=== PATIENT | male | born 1985 | race African-American/Black ===

== ENCOUNTER 2017-03-28 06:49 | Emergency (ER) | payer MEDICARE ==
[~2017-03-28] VITALS: Ht 175.3 cm; Wt 63.5 kg
[~2017-03-28 06:49] MED LIST: CLIN150C14 PO; HYDR-971 PO; MUPI15CR TP; SULF1TAB24 PO; TRAM50TA PO
--- NOTE | 2017-03-28 07:02 | PHYS DOC ---
Past Medical History Past Medical History: Asthma, Bipolar Additional Past Medical Histor: ADHD Past Surgical History: No Surgical History Smokin Pack Per Day Alcohol Use: Heavy Drug Use: Cocaine, Marijuana Adult General Chief Complaint Chief Complaint: MULTIPLE COMPLAINTS HPI HPI Patient is a 32 year old male presents to the emergency department with left anterior chest wall pain. Patient states his pain developed yesterday while he was drinking alcohol. He states he has no known injury. Patient states the pain persisted a level IX on a scale 1-10. Patient has no associated symptoms, no headache, lightheadedness, dizziness, no nausea, no vomiting, no abdominal pain. He states he has not been diaphoretic. Patient does report a history of bipolar disorder and states he is taking his medications. He reports he does not use any illicit drugs. Review of Systems Review of Systems Constitutional: Denies fever or chills [] Eyes: Denies change in visual acuity, redness, or eye pain [] HENT: Denies nasal congestion or sore throat [] Respiratory: Denies cough or shortness of breath [] Cardiovascular: Anterior chest wall pain, no palpitations, no edema GI: Denies abdominal pain, nausea, vomiting, bloody stools or diarrhea [] : Denies dysuria or hematuria [] Musculoskeletal: Denies back pain or joint pain [] Integument: Denies rash or skin lesions , denies diaphoresis[] Neurologic: Denies headache, focal weakness or sensory changes [] Endocrine: Denies polyuria or polydipsia [] All other systems were reviewed and found to be within normal limits, except as documented in this note. Current Medications Current Medications Current Medications Medications (Trade) Dose Ordered Sig/[facility] Start Time Stop Time Status Last Admin Dose Admin Naproxen (Naprosyn) 500 mg 1X ONCE 03/28/17 07:30 03/28/17 07:31 DC Allergies Allergies Allergies Coded Allergies Type Severity Reaction Last Updated Verified No Known Drug Allergies 06/30/13 No Physical Exam Physical Exam Constitutional: Well developed, well nourished, no acute distress, non-toxic appearance. [] HENT: Normocephalic, atraumatic, bilateral external ears normal, oropharynx moist, no oral exudates, nose normal. [] Neck: Normal range of motion, no tenderness, supple without lymphadenopathy, no stridor. [] Cardiovascular:Heart rate regular rhythm, no murmur [] Lungs & Thorax: Bilateral breath sounds clear to auscultation, tenderness to palpate left anterior chest wall intercostal spaces 4 through 7 extending from the left sternal border 2 cm past the midclavicular line.[] Abdomen: Bowel sounds normal, soft, no tenderness, no masses, no pulsatile masses. [] Skin: Warm, dry, no erythema, no rash. [] Back: No tenderness, no CVA tenderness. [] Extremities: No tenderness, no cyanosis, no clubbing, ROM intact, no edema. [] Neurologic: Alert and oriented X 3, normal motor function, normal sensory function, no focal deficits noted. [] Current Patient Data Vital Signs Vital Signs Date Time Temp Pulse Resp B/P (MAP) Pulse Ox O2 Delivery O2 Flow Rate FiO2 03/28/17 06:57 97.9 64 20 129/77 (94) 98 Room Air 97.9 Lab Values Laboratory Tests Test 03/28/17 07:10 White Blood Count 4.6 x10^3/uL (4.0-11.0) Red Blood Count 5.26 x10^6/uL (4.30-5.70) Hemoglobin 12.7 g/dL (13.0-17.5) L Hematocrit 40.8 % (39.0-53.0) Mean Corpuscular Volume 77 fL (79-100) L Mean Corpuscular Hemoglobin 24 pg (25-35) L Mean Corpuscular Hemoglobin Concent 31 g/dL (31-37) Red Cell Distribution Width 13.6 % (11.5-14.5) Platelet Count 148 x10^3/uL (140-400) Neutrophils (%) (Auto) 33 % (31-73) Lymphocytes (%) (Auto) 47 % (24-48) Monocytes (%) (Auto) 12 % (0-9) H Eosinophils (%) (Auto) 7 % (0-3) H Basophils (%) (Auto) 0 % (0-3) Neutrophils # (Auto) 1.5 x10^3uL (1.8-7.7) L Lymphocytes # (Auto) 2.1 x10^3/uL (1.0-4.8) Monocytes # (Auto) 0.6 x10^3/uL (0.0-1.1) Eosinophils # (Auto) 0.3 x10^3/uL (0.0-0.7) Basophils # (Auto) 0.0 x10^3/uL (0.0-0.2) Sodium Level 140 mmol/L (136-145) Potassium Level 3.6 mmol/L (3.5-5.1) Chloride Level 103 mmol/L (98-107) Carbon Dioxide Level 29 mmol/L (21-32) Anion Gap 8 (6-14) Blood Urea Nitrogen 19 mg/dL (8-26) Creatinine 0.9 mg/dL (0.7-1.3) Estimated GFR (Cockcroft-Gault) 119.9 BUN/Creatinine Ratio 21 (6-20) H Glucose Level 97 mg/dL (70-99) Calcium Level 8.7 mg/dL (8.5-10.1) Total Bilirubin 0.7 mg/dL (0.2-1.0) Aspartate Amino Transferase (AST) 15 U/L (15-37) Alanine Aminotransferase (ALT) 17 U/L (16-63) Alkaline Phosphatase 51 U/L (46-116) Creatine Kinase 110 U/L (39-308) Creatine Kinase MB (Mass) < 0.5 ng/mL (0.0-3.6) Creatine Kinase MB Relative Index % (0-4) Troponin I Quantitative < 0.017 ng/mL (0.000-0.055) Total Protein 7.1 g/dL (6.4-8.2) Albumin 3.6 g/dL (3.4-5.0) Albumin/Globulin Ratio 1.0 (1.0-1.7) Laboratory Tests 03/28/17 07:10 Laboratory Tests 03/28/17 07:10 EKG EKG 0702: EKG reviewed by Dr. Treadwell, nonstemi[] Radiology/Procedures Radiology/Procedures [] Course & Med Decision Making Course & Med Decision Making Pertinent Labs and Imaging studies reviewed. (See chart for details) Urine 21, mild dehydration. Patient taking by mouth fluids without difficulty. Will encourage oral rehydration. The patient is resting comfortably and feels better, is alert and in no distress. Repeat examination is unremarkable and benign. He has relief of his left chest wall discomfort with palpation. Elected cardiogram shows no signs of acute ischemia in the history, exam, diagnostic testing and current condition do not suggest that this patient is having acute myocardial infarction, significant arrhythmia, unstable angina, or other significant pathology that would warrant further testing, continued ED treatment, admission or cardiology or other special consultation at this point. Vital signs been stable. The patient's condition is stable and appropriate for discharge. The patient will pursue further outpatient evaluation with the primary care physician or designate and discharge instructions. The patient has expressed a clear and thorough understanding and agrees to follow up as instructed. [] Dragon Disclaimer Dragon Disclaimer This electronic medical record was generated, in whole or in part, using a voice recognition dictation system. Departure Departure Impression: Primary Impression: Chest wall pain Disposition: HOME, SELF-CARE Condition: STABLE Referrals: NO PCP (PCP) [facility] Patient Instructions: Chest Wall Pain Additional Instructions: These call the family medical numerical control operator group for follow-up appointment within 3 -5 days. He may use moist heat to the chest wall. Return to the emergency department new symptoms or concerns or worsening of current condition. Scripts Naproxen (NAPROSYN) 500 Mg Tablet 500 MG PO BID Y for PAIN, #20 TAB Prov: LILLIAN SON APRN 03/28/17 LILLIAN SON APRN Mar 28, 2017 07:02
--- NOTE | 2017-03-28 07:10 | EKG ---
[facility] [address] [place] [address] Test Date: 2017-03-28 Test Time: 07:02:06 Pat Name: JAVIER HAYNES Department: Room: Gender: M Liquor Clerk: : 1985 Requested By: LILLIAN SON Order Number: [id number] Reading MD: Dre Helms MD Measurements Intervals Given Rate: 51 P: 43 AR: 138 QRS: 79 QRSD: 90 T: 64 QT: 388 QTc: 359 Interpretive Statements SINUS RHYTHM Electronically Signed On 04-01-2017 10:39:31 OFFICE SECRETARY by Dre Helms MD
[2017-03-28] MEDS ORDERED: NAPROXEN 500 MG TABLET PO ONE (07:30)
[2017-03-28 07:31] LABS: BASO % 0 % (0-3); EOS % 7 % (0-3); HEMATOCRIT 40.8 % (39.0-53.0); HEMOGLOBIN 12.7 g/dL (13.0-17.5); LYMPH # 2.1 x10^3/uL (1.0-4.8); LYMPH % 47 % (24-48); MEAN CORPUSCULAR HEMOGLOBIN 24 pg (25-35); MEAN CORPUSCULAR HGB CONC 31 g/dL (31-37); MEAN CORPUSCULAR VOLUME 77 fL (79-100); MONO % 12 % (0-9); NEUT % 33 % (31-73); PLATELET COUNT 148 x10^3/uL (140-400); RED BLOOD COUNT 5.26 x10^6/uL (4.30-5.70); RED CELL DISTRIBUTION WIDTH 13.6 % (11.5-14.5); WHITE BLOOD COUNT 4.6 x10^3/uL (4.0-11.0)
[2017-03-28 07:45] LABS: CALCIUM 8.7 mg/dL (8.5-10.1); CREATININE 0.9 mg/dL (0.7-1.3); GFR 119.9; POTASSIUM 3.6 mmol/L (3.5-5.1)
[2017-03-28 07:51] LABS: ALBUMIN 3.6 g/dL (3.4-5.0); TOTAL BILIRUBIN 0.7 mg/dL (0.2-1.0); TOTAL PROTEIN 7.1 g/dL (6.4-8.2)
[2017-03-28 08:00] LABS: CKMB MASS < 0.5 ng/mL (0.0-3.6); CREATINE KINASE 110 U/L (39-308)
[2017-03-28] MEDS ORDERED: NAPR500T PO (08:06)
[2017-03-28 08:30] VITALS: BP 150/75
== END 2017-03-28 08:31 | disposition home or self-care (01) ==
LOC: ER 06:49
DX: R07.89 Other chest pain (principal); F90.9 Attention-deficit hyperactivity disorder, unspecified type; F31.9 Bipolar disorder, unspecified; J45.909 Unspecified asthma, uncomplicated; F10.10 Alcohol abuse, uncomplicated; F17.200 Nicotine dependence, unspecified, uncomplicated
CPT/HCPCS: 36415; 80053; 82553; 84484; 85025; 93005; 99285-25

== ENCOUNTER 2018-02-17 06:26 | Emergency (ER) | payer MEDICARE ==
[~2018-02-17] VITALS: Ht 177.8 cm; Wt 63.5 kg
[~2018-02-17 06:26] MED LIST changes: +BREX4TAB PO; +NAPR-683 PO; +TRAZ-86 PO
[2018-02-17 06:44] LABS: BASO # 0.1 x10^3/uL (0.0-0.2); BASO % 1 % (0-3); EOS # 0.6 x10^3/uL (0.0-0.7); EOS % 7 % (0-3); HEMATOCRIT 44.1 % (39.0-53.0); HEMOGLOBIN 14.3 g/dL (13.0-17.5); LYMPH # 2.2 x10^3/uL (1.0-4.8); LYMPH % 29 % (24-48); MEAN CORPUSCULAR HEMOGLOBIN 25 pg (25-35); MEAN CORPUSCULAR HGB CONC 32 g/dL (31-37); MEAN CORPUSCULAR VOLUME 77 fL (79-100); MONO # 0.9 x10^3/uL (0.0-1.1); MONO % 12 % (0-9); NEUT # 3.9 x10^3uL (1.8-7.7); NEUT % 52 % (31-73); PLATELET COUNT 207 x10^3/uL (140-400); RED BLOOD COUNT 5.72 x10^6/uL (4.30-5.70); RED CELL DISTRIBUTION WIDTH 13.5 % (11.5-14.5); WHITE BLOOD COUNT 7.6 x10^3/uL (4.0-11.0)
--- NOTE | 2018-02-17 06:47 | PHYS DOC ---
Past Medical History Past Medical History: Alcoholism, Schizophrenia Additional Past Medical Histor: ADHD Past Surgical History: No Surgical History Smoking: Cigarettes Alcohol Use: Heavy Drug Use: Marijuana Adult General Chief Complaint Chief Complaint: NAUSEA/VOMITING/DIARRHA HPI HPI 32-year-old male presents with report of headache with associated nausea and vomiting. Patient reports symptoms occurred upon waking this morning. Patient requesting work excuse. Patient also reports drinking heavily this weekend. Reports drinks moonshine and gin which he buys daily. History of chronic alcoholism. Patient also reports smoking marijuana. Denies fever or chills. Reports headache is "all over ". Denies any neck pain. Denies known trauma. Reports he has had a previous episode in the past. [facility] review noted patient admitted in July for alcoholic ketoacidosis. Review of Systems Review of Systems Constitutional: Denies fever or chills; generalized malaise Eyes: Denies change in visual acuity, redness, or eye pain [] HENT: Denies nasal congestion or epistaxis [] Respiratory: Denies cough or shortness of breath [] Cardiovascular: Denies chest pain or palpitations GI: Reports abdominal pain, nausea, and vomiting. Denies constipation : Denies dysuria or hematuria [] Musculoskeletal: Denies back pain or joint pain [] Integument: Denies rash or laceration Neurologic: Reports headache, denies dizziness or lightheadedness Complete systems were reviewed and found to be within normal limits, except as documented in this note. Current Medications Current Medications Current Medications Medications (Trade) Dose Ordered Sig/Dee Start Time Stop Time Status Last Admin Dose Admin Famotidine (Pepcid Vial) 20 mg 1X ONCE 02/17/18 07:00 02/17/18 07:01 DC 02/17/18 06:44 20 MG Info (CONTRAST GIVEN -- Rx MONITORING) 1 each PRN DAILY PRN 02/17/18 07:30 02/19/18 07:29 Iohexol (Omnipaque 300 Mg/ml) 75 ml 1X ONCE 02/17/18 07:30 02/17/18 07:31 DC 02/17/18 07:30 75 ML Ketorolac Tromethamine (Toradol 15mg Vial) 15 mg 1X ONCE 02/17/18 07:00 02/17/18 07:01 DC 02/17/18 06:44 15 MG Ondansetron HCl (Zofran) 4 mg 1X ONCE 02/17/18 07:00 02/17/18 07:01 DC 02/17/18 06:43 4 MG Sodium Chloride 1,000 ml @ 1,000 mls/hr 1X ONCE 02/17/18 08:30 02/17/18 09:29 02/17/18 08:28 1,000 MLS/HR Allergies Allergies Allergies Coded Allergies Type Severity Reaction Last Updated Verified No Known Drug Allergies 06/30/13 No Physical Exam Physical Exam Constitutional: Well developed, well nourished, non-toxic appearance. [] HENT: Normocephalic, atraumatic,, oropharynx moist Eyes: PERRL, EOMI, conjunctiva injected, no discharge. [] Neck: Normal range of motion, no midline tenderness, supple, no meningeal signs Cardiovascular: Heart rate regular rhythm, no murmur [] Lungs & Thorax: Bilateral breath sounds clear to auscultation [] Abdomen: Soft, LUQ tenderness on palpation Skin: Warm, dry, no erythema, no rash. [] Back: No tenderness, no CVA tenderness. [] Extremities: No tenderness, no cyanosis, no clubbing, ROM intact, no edema. [] Neurologic: Alert and oriented X 3, normal motor function, normal sensory function, cerebellar function intact Psychologic: Affect normal, judgement normal, mood normal. [] Current Patient Data Vital Signs Vital Signs Date Time Temp Pulse Resp B/P (MAP) Pulse Ox O2 Delivery O2 Flow Rate FiO2 02/17/18 06:34 98.0 90 18 145/79 (101) 96 Room Air 98.0 Lab Values Laboratory Tests Test 02/17/18 06:33 02/17/18 08:30 White Blood Count 7.6 x10^3/uL (4.0-11.0) Red Blood Count 5.72 x10^6/uL (4.30-5.70) H Hemoglobin 14.3 g/dL (13.0-17.5) Hematocrit 44.1 % (39.0-53.0) Mean Corpuscular Volume 77 fL (79-100) L Mean Corpuscular Hemoglobin 25 pg (25-35) Mean Corpuscular Hemoglobin Concent 32 g/dL (31-37) Red Cell Distribution Width 13.5 % (11.5-14.5) Platelet Count 207 x10^3/uL (140-400) Neutrophils (%) (Auto) 52 % (31-73) Lymphocytes (%) (Auto) 29 % (24-48) Monocytes (%) (Auto) 12 % (0-9) H Eosinophils (%) (Auto) 7 % (0-3) H Basophils (%) (Auto) 1 % (0-3) Neutrophils # (Auto) 3.9 x10^3uL (1.8-7.7) Lymphocytes # (Auto) 2.2 x10^3/uL (1.0-4.8) Monocytes # (Auto) 0.9 x10^3/uL (0.0-1.1) Eosinophils # (Auto) 0.6 x10^3/uL (0.0-0.7) Basophils # (Auto) 0.1 x10^3/uL (0.0-0.2) Sodium Level 142 mmol/L (136-145) Potassium Level 3.8 mmol/L (3.5-5.1) Chloride Level 104 mmol/L (98-107) Carbon Dioxide Level 28 mmol/L (21-32) Anion Gap 10 (6-14) Blood Urea Nitrogen 13 mg/dL (8-26) Creatinine 1.0 mg/dL (0.7-1.3) Estimated GFR (Cockcroft-Gault) 106.2 BUN/Creatinine Ratio 13 (6-20) Glucose Level 81 mg/dL (70-99) Calcium Level 9.7 mg/dL (8.5-10.1) Magnesium Level 2.0 mg/dL (1.8-2.4) Total Bilirubin 0.8 mg/dL (0.2-1.0) Aspartate Amino Transferase (AST) 15 U/L (15-37) Alanine Aminotransferase (ALT) 23 U/L (16-63) Alkaline Phosphatase 62 U/L (46-116) Creatine Kinase 141 U/L (39-308) Total Protein 8.1 g/dL (6.4-8.2) Albumin 4.1 g/dL (3.4-5.0) Albumin/Globulin Ratio 1.0 (1.0-1.7) Lipase 83 U/L (73-393) Ethyl Alcohol Level 22 mg/dL (0-10) H Urine Collection Type Unknown Urine Color Yellow Urine Clarity Clear Urine pH 5.5 Urine Specific [place] >=1.030 Urine Protein Negative mg/dL (NEG-TRACE) Urine Glucose (UA) Negative mg/dL (NEG) Urine Ketones (Stick) 15 mg/dL (NEG) Urine Blood Negative (NEG) Urine Nitrite Negative (NEG) Urine Bilirubin Negative (NEG) Urine Urobilinogen Dipstick 1.0 mg/dL (0.2 mg/dL) Urine Leukocyte Esterase Negative (NEG) Urine RBC 0 /HPF (0-2) Urine WBC Occ /HPF (0-4) Urine Squamous Epithelial Cells Occ /LPF Urine Bacteria 0 /HPF (0-FEW) Urine Mucus Mod /LPF Urine Opiates Screen Neg (NEG) Urine Methadone Screen Neg (NEG) Urine Barbiturates Neg (NEG) Urine Phencyclidine Screen Pos (NEG) Urine Amphetamine/Methamphetamine Pos (NEG) Urine Benzodiazepines Screen Neg (NEG) Urine Cocaine Screen Pos (NEG) Urine Cannabinoids Screen Pos (NEG) Urine Ethyl Alcohol Pos (NEG) Laboratory Tests 02/17/18 06:33 Laboratory Tests 02/17/18 06:33 EKG EKG [] Radiology/Procedures Radiology/Procedures PROCEDURE: CT HEAD AND CERVICAL SPINE WO CT head and cervical spine without contrast History: Headache, EtOH Technique: Noncontrast CT imaging was performed of the head and cervical spine. Multiplanar reconstruction images are submitted. Exposure: One or more of the following individualized dose reduction techniques were utilized for this examination: 1. Automated exposure control 2. Adjustment of the mA and/or kV according to patient size 3. Use of iterative reconstruction technique. Head CT Comparison: 06/30/2013 Findings: No acute extra-axial or parenchymal hemorrhage is identified. There is no significant intra-axial mass effect, midline shift, or extra-axial fluid collection. The fraser-white differentiation of the major vascular territories is preserved. The ventricles, sulci, and cisterns are within normal limits in size and configuration. The mastoid air cells and the visualized paranasal sinuses are aerated. There is no significant focal calvarial abnormality. Impression: 1. No acute intracranial abnormality is identified. Cervical spine CT Comparison: None Findings: No acute cervical spine fracture is identified. Vertebral body stature and AP alignment are within normal limits. Atlanto-axial distance is within normal limits. There is appropriate alignment of lateral masses of C1 relative to C2. Occipital condylar-C1 relationship is maintained. Impression: 1. No acute cervical spine fracture is identified. Electronically signed by: Antwan Melara MD (02/17/2018 8:20 AM) [facility] PROC[facility]: CT ABD PELV W/ IV CONTRST ONLY CT abdomen and pelvis with contrast History: Left upper quadrant pain, nausea and vomiting, EtOH abuse Technique: After the administration of intravenous contrast, CT imaging was performed of the abdomen and pelvis. No oral contrast was given as per request. Multiplanar images are reviewed. Exposure: One or more of the following individualized dose reduction techniques were utilized for this examination: 1. Automated exposure control 2. Adjustment of the mA and/or kV according to patient size 3. Use of iterative reconstruction technique. Contrast: 75 cc Omnipaque 300 Comparison: None Findings: There is no significant abnormality of the visualized lung bases. There is no significant abnormality of the liver, spleen, pancreas, adrenal glands. Both kidneys enhance without hydronephrosis. Gallbladder is present without obvious intraluminal abnormality by CT. Accurate evaluation of bowel is limited without oral contrast. There is no significant inflammatory change adjacent to the bowel. Appearance of mild wall thickening of the proximal descending colon may be accentuated by peristalsis and incomplete distention. There is no evidence of bowel obstruction, free fluid, or free air. Normal appendix is visualized. There is focus of nonspecific sclerosis of the left iliac bone. Impression: 1. Appearance of mild wall thickening of the proximal descending colon may be accentuated by peristalsis and incomplete distention, mild segmental colitis not excludable. Otherwise no significant acute abnormality is identified. 2. There is focus of nonspecific sclerosis of the left iliac bone, more likely to be benign in a patient of this age. Electronically signed by: Antwan Melara MD (02/17/2018 8:25 AM) [facility] Course & Med Decision Making Course & Med Decision Making Pertinent Labs and Imaging studies reviewed. (See chart for details) Patient with chronic alcoholism presents with reported headache and associated nausea and vomiting. Patient immediately asking for a work excuse. Abdomen tender to left upper quadrant. Patient neurologically intact. No midline cervical spine tenderness appreciated. Given history of alcohol abuse cannot exclude traumatic injury. CT head/cervical spine without acute process. Labs obtained and posted to chart. LFT/lipase within normal limits. Alcohol 22. UDS positive. Symptomatic treatment provided including IV fluid hydration. CT abdomen/pelvis with some mild thickening of descending colon. Given WBC within normal limits and patient reporting symptoms occurred after drinking heavily will hold empiric antibiotics at this time. Patient stable for discharge with outpatient follow-up with PCP/GI. GI referral provided. Alcohol abuse resources provided. Discussed findings and plan with patient and family, who acknowledge understanding and agreement. Dragon Disclaimer Dragon Disclaimer This electronic medical record was generated, in whole or in part, using a voice recognition dictation system. Departure Departure Impression: Primary Impression: Headache Additional Impressions: Alcohol abuse Nausea and vomiting Drug abuse Disposition: HOME, SELF-CARE Condition: IMPROVED Referrals: NO PCP (PCP) EM STEVEN MD Patient Instructions: Alcohol and Drug Addiction, Finding Treatment, Chronic Alcoholism, Drug Abuse, FAQs, Headache, FAQs, Nausea and Vomiting, [id number] Scripts Butalb/Acetaminophen/Caffeine ([id number] 50-325-40) 1 Each Tablet 1 EACH PO Q6HRS PRN for HEADACHE, #14 TAB Prov: ZAIN JOHNSON DO 02/17/18 Famotidine (PEPCID) 20 Mg Tablet 20 MG PO BID, #20 TAB Prov: ZAIN JOHNSON DO 02/17/18 Ondansetron (ZOFRAN ODT) 4 Mg Tab.rapdis 1 TAB SL Q8HRS PRN for NAUSEA, #15 TAB Prov: ZAIN JOHNSON DO 02/17/18 Problem Qualifiers Primary Impression: Headache Headache type: unspecified Headache chronicity pattern: unspecified pattern Intractability: not intractable Qualified Codes: R51 - Headache Additional Impressions: Nausea and vomiting Vomiting type: unspecified Vomiting Intractability: unspecified Qualified Codes: R11.2 - Nausea with vomiting, unspecified ZAIN JOHNSON DO Feb 17, 2018 06:47
[2018-02-17 06:54] LABS: CALCIUM 9.7 mg/dL (8.5-10.1); GFR 106.2; POTASSIUM 3.8 mmol/L (3.5-5.1)
[2018-02-17 07:00] LABS: ALBUMIN 4.1 g/dL (3.4-5.0); TOTAL BILIRUBIN 0.8 mg/dL (0.2-1.0); TOTAL PROTEIN 8.1 g/dL (6.4-8.2)
[2018-02-17] MEDS ORDERED: KETOROLAC 15 MG/ML VIAL. IV ONE (07:00)
[2018-02-17] MEDS ORDERED: IV NORMAL SALINE 1000ML BAG 1,000 ML IV ONE ×2 (07:00→08:30)
[2018-02-17] MEDS ORDERED: FAMOTIDINE 20 MG/2 ML VIAL IVP ONE (07:00)
[2018-02-17] MEDS ORDERED: ONDANSETRON PF 4 MG/2 ML VIAL. IV ONE (07:00)
[2018-02-17] MEDS ORDERED: CONTRAST GIVEN. MC PRN (07:30)
[2018-02-17] MEDS ORDERED: IOHEXOL 300 MG/ML 100ML VIAL. IV ONE (07:30)
[2018-02-17] MEDS ORDERED: ONDA4TAB10 SL (07:30)
[2018-02-17] MEDS ORDERED: BUTA1TAB23 PO (07:30)
[2018-02-17] MEDS ORDERED: FAMO-63 PO (07:30)
--- NOTE | 2018-02-17 08:23 | RAD ---
CT head and cervical spine without contrast History: Headache, EtOH Technique: Noncontrast CT imaging was performed of the head and cervical spine. Multiplanar reconstruction images are submitted. Exposure: One or more of the following individualized dose reduction techniques were utilized for this examination: 1. Automated exposure control 2. Adjustment of the mA and/or kV according to patient size 3. Use of iterative reconstruction technique. Head CT Comparison: 06/30/2013 Findings: No acute extra-axial or parenchymal hemorrhage is identified. There is no significant intra-axial mass effect, midline shift, or extra-axial fluid collection. The fraser-white differentiation of the major vascular territories is preserved. The ventricles, sulci, and cisterns are within normal limits in size and configuration. The mastoid air cells and the visualized paranasal sinuses are aerated. There is no significant focal calvarial abnormality. Impression: 1. No acute intracranial abnormality is identified. Cervical spine CT Comparison: None Findings: No acute cervical spine fracture is identified. Vertebral body stature and AP alignment are within normal limits. Atlanto-axial distance is within normal limits. There is appropriate alignment of lateral masses of C1 relative to C2. Occipital condylar-C1 relationship is maintained. Impression: 1. No acute cervical spine fracture is identified. Electronically signed by: Antwan Melara MD (02/17/2018 8:20 AM) [facility]
--- NOTE | 2018-02-17 08:29 | RAD ---
CT abdomen and pelvis with contrast History: Left upper quadrant pain, nausea and vomiting, EtOH abuse Technique: After the administration of intravenous contrast, CT imaging was performed of the abdomen and pelvis. No oral contrast was given as per request. Multiplanar images are reviewed. Exposure: One or more of the following individualized dose reduction techniques were utilized for this examination: 1. Automated exposure control 2. Adjustment of the mA and/or kV according to patient size 3. Use of iterative reconstruction technique. Contrast: 75 cc Omnipaque 300 Comparison: None Findings: There is no significant abnormality of the visualized lung bases. There is no significant abnormality of the liver, spleen, pancreas, adrenal glands. Both kidneys enhance without hydronephrosis. Gallbladder is present without obvious intraluminal abnormality by CT. Accurate evaluation of bowel is limited without oral contrast. There is no significant inflammatory change adjacent to the bowel. Appearance of mild wall thickening of the proximal descending colon may be accentuated by peristalsis and incomplete distention. There is no evidence of bowel obstruction, free fluid, or free air. Normal appendix is visualized. There is focus of nonspecific sclerosis of the left iliac bone. Impression: 1. Appearance of mild wall thickening of the proximal descending colon may be accentuated by peristalsis and incomplete distention, mild segmental colitis not excludable. Otherwise no significant acute abnormality is identified. 2. There is focus of nonspecific sclerosis of the left iliac bone, more likely to be benign in a patient of this age. Electronically signed by: Antwan Melara MD (02/17/2018 8:25 AM) [email or web address]
[2018-02-17 08:30] VITALS: BP 122/67
[2018-02-17 08:40] LABS: AMPHETAMINE/METHAMPHETAMINE POS (NEG); BARBITURATES NEG (NEG); BENZODIAZEPINES NEG (NEG); CANNABINOIDS POS (NEG); COCAINE POS (NEG); METHADONE NEG (NEG); OPIATES NEG (NEG); PHENCYCLIDINE POS (NEG)
[2018-02-17 08:42] LABS: BILIRUBIN,URINE NEGATIVE (NEG); CLARITY,URINE CLEAR; COLOR,URINE YELLOW; NITRITE,URINE NEGATIVE (NEG); PH,URINE 5.5; PROTEIN,URINE NEGATIVE (NEG-TRACE)
[2018-02-17 08:52] LABS: BACTERIA,URINE 0 /HPF (0-FEW); RBC,URINE 0 /HPF (0-2); SQUAMOUS EPITHELIAL CELL,UR OCC /LPF; WBC,URINE OCC /HPF (0-4)
== END 2018-02-17 09:40 | disposition home or self-care (01) ==
LOC: ER 06:26
DX: R51 Headache (principal); R11.2 Nausea with vomiting, unspecified; R10.12 Left upper quadrant pain; F10.20 Alcohol dependence, uncomplicated; F12.10 Cannabis abuse, uncomplicated; G95.89 Other specified diseases of spinal cord; F20.9 Schizophrenia, unspecified; F17.210 Nicotine dependence, cigarettes, uncomplicated; Y90.1 Blood alcohol level of 20-39 mg/100 ml
CPT/HCPCS: 36415; 70450; 72125; 74177; 80053; 80307; 81001; 82550; 83690; 83735; 85025; 96361; 96374; 96375; 99285; G0480; J1885; J2405; J7030; Q9967; S0028; G0479

== ENCOUNTER 2018-05-26 07:11 | Emergency (ER) | payer MEDICARE ==
[~2018-05-26] VITALS: Ht 170.2 cm; Wt 68.0 kg
[~2018-05-26 07:11] MED LIST changes: +BUTA1TAB23 PO; +FAMO-63 PO; +HYDR-3164 PO; -HYDR-971 PO; +ONDA4TAB10 SL
[2018-05-26 07:15] VITALS: BP 120/68
[2018-05-26] MEDS ORDERED: [UNRECOGNIZED DRUG - CODE] TP (07:24)
--- NOTE | 2018-05-26 09:43 | PHYS DOC ---
Past Medical History Past Medical History: Alcoholism, Schizophrenia Additional Past Medical Histor: ADHD Past Surgical History: No Surgical History Alcohol Use: Heavy Drug Use: Marijuana Adult General Chief Complaint Chief Complaint: SKIN RASH/ABSCESS HPI HPI Patient is a 33 year old male with rash to the right hand times one week he started a new job he uses different soap no respiratory symptoms Allergies Allergies Allergies Coded Allergies Type Severity Reaction Last Updated Verified No Known Drug Allergies 06/30/13 No Physical Exam Physical Exam Constitutional: Well developed, well nourished, no acute distress, non-toxic appearance. [] HENT: Normocephalic, atraumatic, bilateral external ears normal, oropharynx moist, no oral exudates, nose normal. [] Eyes: PERRLA, EOMI, conjunctiva normal, no discharge. [] Neck: Normal range of motion, no tenderness, supple, no stridor. [] Pulmonary: Normal respiratory effort no increased work of breathing no obvious chest wall trauma Abdomen: Bowel sounds normal, soft, no tenderness, no masses, no pulsatile masses. [] Skin: 6 there is an approximately 3 x 4 cm raised patch eczematous appearing sort of dry cracking occasional blister formation localized to the dorsum of the right hand nothing intertrigAL nothing else on the body anywhere that we saw. Neurologic: Alert and oriented X 3, normal motor function, normal sensory function, no focal deficits noted. [] Psychologic: Affect normal, judgement normal, mood normal. [] Current Patient Data Vital Signs Vital Signs Date Time Temp Pulse Resp B/P (MAP) Pulse Ox O2 Delivery O2 Flow Rate FiO2 05/26/18 07:15 97.9 66 18 97 Room Air 97.9 EKG EKG [] Radiology/Procedures Radiology/Procedures [] Course & Med Decision Making Course & Med Decision Making Pertinent Labs and Imaging studies reviewed. (See chart for details) []Probably patchy eczema try hydrocortisone no other evidence of serious infection at this time Dragon Disclaimer Dragon Disclaimer This electronic medical record was generated, in whole or in part, using a voice recognition dictation system. Departure Departure Impression: Primary Impression: Rash Disposition: 01 HOME, SELF-CARE Condition: STABLE Patient Instructions: Rash, [id number] Scripts Hydrocortisone Acetate (HYDROCORTISONE ACETATE) 28.4 Gm Cream..g. 28.4 GM TP BID, #1 BOT Prov: ALEXIS FARRELL MD 05/26/18 ALEXIS FARRELL MD May 26, 2018 09:43
== END 2018-05-26 07:46 | disposition home or self-care (01) ==
LOC: ER 07:11
DX: R21 Rash and other nonspecific skin eruption (principal); F20.9 Schizophrenia, unspecified; F90.9 Attention-deficit hyperactivity disorder, unspecified type; F10.20 Alcohol dependence, uncomplicated; Y90.9 Presence of alcohol in blood, level not specified
CPT/HCPCS: 99282

== ENCOUNTER 2018-08-30 16:50 | Emergency (ER) | payer MEDICARE ==
[~2018-08-30] VITALS: Ht 170.2 cm; Wt 68.0 kg
[~2018-08-30 16:50] MED LIST changes: +[UNRECOGNIZED DRUG - CODE] TP
[2018-08-30 16:54] VITALS: BP 117/63
--- NOTE | 2018-08-30 17:07 | PHYS DOC ---
Past Medical History Past Medical History: Alcoholism, Schizophrenia, Other Additional Past Medical Histor: ADHD Past Surgical History: No Surgical History Additional Information: 1 PPD Alcohol Use: Heavy Additional Information: EVERY WEEKEND, 2 BOTTLES OF BEER/WHISKEY Drug Use: Marijuana Adult General Chief Complaint Chief Complaint: PAIN ON URINATION HPI HPI Patient is a 33 year old M who presents to ER today with complaints of dysuria and pus coming out of his penis. He denies new sexual partners but is concerned about an STD. He denies abd or flank pain or fevers. Review of Systems Review of Systems Constitutional: Denies fever or chills Respiratory: Denies cough or shortness of breath Cardiovascular: Denies chest pain GI: Denies abdominal pain, nausea, vomiting, bloody stools or diarrhea : Denies sores. Reports pus and dysuria. Musculoskeletal: Denies back pain or joint pain Integument: Denies rash or skin lesions Neurologic: Denies headache, focal weakness or sensory changes All other systems were reviewed and found to be within normal limits, except as documented in this note. Current Medications Current Medications Current Medications Medications (Trade) Dose Ordered Sig/Dee Start Time Stop Time Status Last Admin Dose Admin Azithromycin (Zithromax) 1,000 mg 1X ONCE 08/30/18 17:15 08/30/18 17:16 DC 08/30/18 17:12 1,000 MG Ceftriaxone Sodium (Rocephin Im) 1 gm 1X ONCE 08/30/18 17:15 08/30/18 17:16 DC 08/30/18 17:13 1 GM Allergies Allergies Allergies Coded Allergies Type Severity Reaction Last Updated Verified No Known Drug Allergies 06/30/13 No Physical Exam Physical Exam Constitutional: Well developed, well nourished, no acute distress, non-toxic appearance. Neck: Normal range of motion, no tenderness, supple, no stridor. Cardiovascular:Heart rate regular rhythm, no murmur Lungs & Thorax: Bilateral breath sounds clear to auscultation Abdomen: Bowel sounds normal, soft, no tenderness, no masses, no pulsatile masses. : Exam deferred. Skin: Warm, dry, no erythema, no rash. Back: No tenderness, no CVA tenderness. Extremities: No tenderness, no cyanosis, no clubbing, ROM intact, no edema. Neurologic: Alert and oriented X 3, normal motor function, normal sensory function, no focal deficits noted. Psychologic: Affect normal, judgement normal, mood normal. Current Patient Data Vital Signs Vital Signs Date Time Temp Pulse Resp B/P (MAP) Pulse Ox O2 Delivery O2 Flow Rate FiO2 08/30/18 16:54 98.5 97 14 117/63 (81) 97 Room Air 98.5 Lab Values Laboratory Tests Test 08/30/18 17:11 Urine Collection Type Unknown Urine Color Yellow Urine Clarity Clear Urine pH 6.0 Urine Specific [place] >=1.030 Urine Protein Negative mg/dL (NEG-TRACE) Urine Glucose (UA) Negative mg/dL (NEG) Urine Ketones (Stick) Negative mg/dL (NEG) Urine Blood Small (NEG) Urine Nitrite Negative (NEG) Urine Bilirubin Negative (NEG) Urine Urobilinogen Dipstick 1.0 mg/dL (0.2 mg/dL) Urine Leukocyte Esterase Moderate (NEG) Urine RBC 1-2 /HPF (0-2) Urine WBC >40 /HPF (0-4) Urine Bacteria 0 /HPF (0-FEW) Urine Mucus Mod /LPF EKG EKG [] Radiology/Procedures Radiology/Procedures [] Course & Med Decision Making Course & Med Decision Making Pertinent Labs and Imaging studies reviewed. (See chart for details) Pt treated with Rocephin and Azithromycin today in ER and will be given Rx for Flagyl as well as Cipro for infected urine, which could be from STD. Pt informed of this finding and encouraged to abstain until results are known. Dragon Disclaimer Dragon Disclaimer This electronic medical record was generated, in whole or in part, using a voice recognition dictation system. Departure Departure Impression: Primary Impression: Urinary tract infection Additional Impression: Concern about STD in male without diagnosis Disposition: 01 HOME, SELF-CARE Condition: STABLE Referrals: NO PCP (PCP) FELISA FERRER MD Patient Instructions: Urinary Tract Infection, [id number] Additional Instructions: We treated you today for possible STD, but those tests will not come back today. You were treated with antibiotics that cover Gonorrhea and Chlamydia. We are writing you prescriptions for urinary tract infection and to cover possible Trichomonas. Follow up with your primary care doctor if symptoms persist. Scripts Ciprofloxacin Hcl (CIPRO) 500 Mg Tablet 1 TAB PO BID, #14 TAB Prov: TIM FRANCISCO 08/30/18 Metronidazole (FLAGYL) 500 Mg Tablet 1 TAB PO BID, #14 TAB Prov: TIM FRANCISCO 08/30/18 Problem Qualifiers TIM FRANCISCO Aug 30, 2018 17:07
[2018-08-30] MEDS ORDERED: AZITHROMYCIN 250 MG TABLET. PO ONE (17:15)
[2018-08-30] MEDS ORDERED: cefTRIAXone IM 1 GM VIAL IM ONE (17:15)
[2018-08-30 17:23] LABS: BILIRUBIN,URINE NEGATIVE (NEG); CLARITY,URINE CLEAR; COLOR,URINE YELLOW; NITRITE,URINE NEGATIVE (NEG); PROTEIN,URINE NEGATIVE (NEG-TRACE)
[2018-08-30 17:29] LABS: WBC,URINE >40 /HPF (0-4)
[2018-08-30 17:30] LABS: BACTERIA,URINE 0 /HPF (0-FEW)
[2018-08-30] MEDS ORDERED: CIPR500T94 PO (17:40)
[2018-08-30] MEDS ORDERED: METR500T PO (17:40)
== END 2018-08-30 17:47 | disposition home or self-care (01) ==
LOC: ER 16:50
DX: N39.0 Urinary tract infection, site not specified (principal); Z20.2 Contact with and (suspected) exposure to infections with a predominantly sexual mode of transmission; F17.200 Nicotine dependence, unspecified, uncomplicated; F90.9 Attention-deficit hyperactivity disorder, unspecified type; F10.20 Alcohol dependence, uncomplicated; Y90.9 Presence of alcohol in blood, level not specified
CPT/HCPCS: 81001; 87086; 87491; 87591; 96372; 99284; J0696; Q0144

== ENCOUNTER 2019-03-08 16:29 | Emergency (ER) | payer MEDICARE ==
[~2019-03-08] VITALS: Ht 175.3 cm; Wt 68.0 kg
[~2019-03-08 16:29] MED LIST changes: +CIPR500T94 PO; +METR500T PO; +THIA500T PO
[2019-03-08] MEDS ORDERED: ONDANSETRON ODT 4 MG TAB.RAPDIS. PO ONE (16:45)
--- NOTE | 2019-03-08 16:57 | PHYS DOC ---
Past Medical History Past Medical History: Alcoholism, Schizophrenia, Other Additional Past Medical Histor: ADHD (ASHWIN PITTS APRN) Past Surgical History: No Surgical History (ASHWIN PITTS APRN) Alcohol Use: Heavy Drug Use: Marijuana (ASHWIN PITTS APRN) Adult General Chief Complaint Chief Complaint: NAUSEA/VOMITING/DIARRHA HPI HPI Patient is a 33 year old male who presents with N/V/D symptoms started today, ate T Prather yesterday and not feeling well today, states he can tolerate fluids but still with nausea. No blood in stool or emesis. No fevers or abdominal pain. Works at [employer] and is here for a work note and treatment. He is resting in no distress. Hx of alcohol abuse, denies withdraw symptoms or ETOH side effects today. (ASHWIN PITTS APRN) Review of Systems Review of Systems Constitutional: Denies fever or chills [] Eyes: Denies change in visual acuity, redness, or eye pain [] HENT: Denies nasal congestion or sore throat [] Respiratory: Denies cough or shortness of breath [] Cardiovascular: No additional information not addressed in HPI [] GI: Denies abdominal pain, bloody stools. C/o N/V/D : Denies dysuria or hematuria [] Musculoskeletal: Denies back pain or joint pain [] Integument: Denies rash or skin lesions [] Neurologic: Denies headache, focal weakness or sensory changes [] Endocrine: Denies polyuria or polydipsia [] All other systems were reviewed and found to be within normal limits, except as documented in this note. (ASHWIN PITTS APRN) Current Medications Current Medications Current Medications Medications (Trade) Dose Ordered Sig/Dee Start Time Stop Time Status Last Admin Dose Admin Ondansetron HCl (Zofran Odt) 4 mg 1X ONCE 03/08/19 16:45 03/08/19 16:46 DC 03/08/19 16:54 4 MG (ALEXIS FARRELL MD) Allergies Allergies Allergies Coded Allergies Type Severity Reaction Last Updated Verified No Known Drug Allergies 06/30/13 No (ALEXIS FARRELL MD) Physical Exam Physical Exam Constitutional: Well developed, well nourished, no acute distress, non-toxic appearance. [] HENT: Normocephalic, atraumatic, bilateral external ears normal, oropharynx moist, no oral exudates, nose normal. [] Eyes: PERRLA, EOMI, conjunctiva normal, no discharge. [] Neck: Normal range of motion, no tenderness, supple, no stridor. [] Cardiovascular:Heart rate regular rhythm, no murmur [] Lungs & Thorax: Bilateral breath sounds clear to auscultation [] Abdomen: Bowel sounds normal, soft, no tenderness, no masses, no pulsatile masses. [] Skin: Warm, dry, no erythema, no rash. [] Back: No tenderness, no CVA tenderness. [] Extremities: No tenderness, no cyanosis, no clubbing, ROM intact, no edema. [] Neurologic: Alert and oriented X 3, normal motor function, normal sensory function, no focal deficits noted. [] Psychologic: Affect normal, judgement normal, mood normal. [] (ASHWIN PITTS APRN) Current Patient Data Vital Signs Vital Signs Date Time Temp Pulse Resp B/P (MAP) Pulse Ox O2 Delivery O2 Flow Rate FiO2 03/08/19 17:41 58 21 111/58 (75) 98 Room Air 03/08/19 16:41 98.5 98.5 (ALEXIS FARRELL MD) EKG EKG [] (ASHWIN PITTS APRN) Radiology/Procedures Radiology/Procedures [] (ASHWIN PITTS APRN) Impressions: Vomiting, diarrhea, viral/food bourne illness (ASHWIN PITTS APRN) Course & Med Decision Making Course & Med Decision Making Pertinent Labs and Imaging studies reviewed. (See chart for details) []Patient appears well, VSS, abdomen non tender. No diarrhea in the ER Zofran and PO challenge. No vomiting, states he is anxious to go Work note and Zofran Stable for home care, educated on home care fu and reasons to return to the ER (ASHWIN PITTS APRN) Course & Med Decision Making Staff Physician Addendum: I was working in the ER during the course of this patient's visit. I was available for consultation as needed, but I was not directly involved in the care of this patient. (ALEXIS FARRELL MD) Dragon Disclaimer Dragon Disclaimer This electronic medical record was generated, in whole or in part, using a voice recognition dictation system. (ASHWIN PITTS APRN) Departure Departure Impression: Primary Impression: Nausea and vomiting Additional Impression: Diarrhea Disposition: 01 HOME, SELF-CARE Condition: STABLE Referrals: NO PCP (PCP) [facility] Patient Instructions: Nausea and Vomiting, [id number] Additional Instructions: Go home and rest Liquid diet advance as tolerated [place] foods zofran as prescribed Call the clinic for follow up, return for any concerns or worsening symptoms Scripts Ondansetron Hcl (ZOFRAN) 4 Mg Tablet 1 TAB PO Q6HRS, #10 TAB Prov: ASHWIN PITTS APRN 03/08/19 Problem Qualifiers ASHWIN PITTS APRN Mar 08, 2019 16:57 ALEXIS FARRELL MD Mar 10, 2019 00:10
[2019-03-08] MEDS ORDERED: ONDA4TAB7 PO (17:13)
[2019-03-08 17:41] VITALS: BP 111/58
== END 2019-03-08 17:43 | disposition home or self-care (01) ==
LOC: ER 16:29
DX: R11.2 Nausea with vomiting, unspecified (principal); R19.7 Diarrhea, unspecified; F10.20 Alcohol dependence, uncomplicated; Y90.9 Presence of alcohol in blood, level not specified
CPT/HCPCS: 99283; Q0162